=== PATIENT | female | born 1990 | race Caucasian/White ===

== ENCOUNTER 2017-08-07 00:13 | Emergency (ER) | payer MEDICAID ==
[~2017-08-07] VITALS: Ht 165.1 cm; Wt 111.7 kg
[2017-08-07] MEDS ORDERED: ASPIRIN 81MG TABLET PO ONE (01:00)
[2017-08-07] MEDS ORDERED: NITROGLYCERIN OINT 1GM/INCH UDPKT TD ONE (01:00)
[2017-08-07 01:29] LABS: BASOPHILS % 0.4 % (0.0-2.0); EOSINOPHILS % 2.1 % (0.0-5.0); HEMATOCRIT. 43.6 % (36.0-48.0); HEMOGLOBIN. 14.9 g/dL (12.0-16.0); MEAN CORPUSCULAR HEMOGLOBIN 26.2 pg (28.0-32.0); MEAN CORPUSCULAR VOLUME 76.7 fL (81.0-99.0); NEUTROPHILS % 60.5 % (40.0-76.0); PLATELET 281 x1000/uL (130-400); RED BLOOD CELL COUNT 5.68 mill/uL (4.2-5.4); RED CELL DISTRIBUTION WIDTH 13.9 % (11.6-14.6)
[2017-08-07 01:33] LABS: HCG SCREEN NEGATIVE
[2017-08-07 01:38] LABS: D-DIMER < 0.19 mg/L FEU (<0.50); PARTIAL THROMBOPLASTIN TIME 27.5 sec (23.4-31.0); PROTHROMBIN TIME 10.8 sec (9.4-11.6)
[2017-08-07 01:45] LABS: CARBON DIOXIDE 23 mEq/L (21-32); CHLORIDE 104 mEq/L (98-107); ETHANOL BLOOD < 10 mg/dL; TROPONIN I < 0.02 ng/mL (0.00-0.04)
[2017-08-07] MEDS ORDERED: MECLIZINE 25MG TABLET PO ONE (02:45)
[2017-08-07 03:28] LABS: CLARITY URINE CLEAR (CLEAR); COLOR URINE YELLOW (YELLOW); GLUCOSE URINE 3+ (NEGATIVE); KETONES URINE 3+ (NEGATIVE); LEUKOCYTE ESTERASE URINE NEGATIVE (NEGATIVE); NITRITE URINE NEGATIVE (NEGATIVE); OCCULT BLOOD URINE TRACE (NEGATIVE); PROTEIN URINE NEGATIVE (NEGATIVE); SPECIFIC GRAVITY URINE 1.048 (1.005-1.030); UROBILINOGEN URINE 0.2 E.U./dL (0.2-1.0)
[2017-08-07 04:10] VITALS: BP 127/79
[2017-08-07 04:18] LABS: *AMPHETAMINES SCREEN URINE NEGATIVE (NEGATIVE); *BARBITURATES SCREEN URINE NEGATIVE (NEGATIVE); *BENZODIAZEPINES SCREEN URINE NEGATIVE (NEGATIVE); *COCAINE SCREEN URINE NEGATIVE (NEGATIVE); CANNABINOID URINE SCREEN NEGATIVE (NEGATIVE); METHADONE URINE SCREEN NEGATIVE (NEGATIVE); OPIATES URINE SCREEN NEGATIVE (NEGATIVE); PHENCYCLIDINE URINE SCREEN NEGATIVE (NEGATIVE)
== END 2017-08-07 04:33 | disposition home or self-care (01) ==
LOC: ER 01:20
DX: R07.89 Other chest pain (principal); R51 Headache; E11.65 Type 2 diabetes mellitus with hyperglycemia; R10.11 Right upper quadrant pain; R00.0 Tachycardia, unspecified; J45.909 Unspecified asthma, uncomplicated; Z90.49 Acquired absence of other specified parts of digestive tract; Z98.890 Other specified postprocedural states; Z87.19 Personal history of other diseases of the digestive system
CPT/HCPCS: 36415; 70450; 71010; 74176; 80053; 80305; 81001; 82962; 83690; 83880; 84484; 84703; 85025; 85379; 85610; 85730; 93005; 99285; G0482; Z7610; J8597

== ENCOUNTER 2019-06-18 02:54 | Emergency (ER) | payer MEDICAID ==
[~2019-06-18] VITALS: Ht 165.1 cm; Wt 109.0 kg
[2019-06-18 05:54] LABS: BASOPHILS % 0.5 % (0.0-2.0); HEMATOCRIT. 36.4 % (36.0-48.0); HEMOGLOBIN. 12.6 g/dL (12.0-16.0); LYMPHOCYTES % 18.3 % (20.0-50.0); MEAN CORPUSCULAR HEMOGLOBIN 27.6 pg (28.0-32.0); MEAN CORPUSCULAR VOLUME 79.9 fL (81.0-99.0); NEUTROPHILS % 74.2 % (40.0-76.0); PLATELET 224 x1000/uL (130-400); RED BLOOD CELL COUNT 4.55 mill/uL (4.2-5.4); RED CELL DISTRIBUTION WIDTH 14.1 % (11.6-14.6)
[2019-06-18 05:59] LABS: CHLORIDE 105 mEq/L (98-107)
[2019-06-18 06:27] LABS: B-HCG QUANTITATIVE 9383 mIU/mL (<3)
[2019-06-18] MEDS ORDERED: MORPHINE SULFATE 4 MG/ML CPJ (NOT FOR IM USE) IV ONE (06:45)
[2019-06-18] MEDS ORDERED: SODIUM CHLORIDE 0.9% 1,000 ML IV ONE (06:45)
[2019-06-18] MEDS ORDERED: ONDANSETRON HCL 4MG/2ML INJ IV ONE (06:45)
[2019-06-18 09:23] VITALS: BP 122/76
== END 2019-06-18 09:26 | disposition home or self-care (01) ==
LOC: ER 02:54
DX: O03.9 Complete or unspecified spontaneous abortion without complication (principal); N93.9 Abnormal uterine and vaginal bleeding, unspecified; E11.9 Type 2 diabetes mellitus without complications; J45.909 Unspecified asthma, uncomplicated
CPT/HCPCS: 36415; 76830; 76856; 80053; 84702; 85025; 86850; 86900; 86901; 96374; 96375; 99284; J2270; J2405; J7030